=== PATIENT | male | born 1960 | race Caucasian/White ===

== ENCOUNTER 2019-01-12 22:15 | Emergency (ER) | payer OTHER, SELFPAY ==
[~2019-01-12] VITALS: Ht 172.7 cm; Wt 72.7 kg
[2019-01-12 23:07] LABS: HEMATOCRIT 44.5 % (42.0-52.0); HEMOGLOBIN 15.7 g/dl (13.5-17.5); MEAN CORPUSCULAR HEMOGLOBIN 33.5 pg (27.0-33.0); MEAN CORPUSCULAR HGB CONC 35.3 g/dl (32.0-36.5); MEAN CORPUSCULAR VOLUME 94.9 fl (80.0-96.0); PLATELET COUNT, AUTOMATED 245 10^3/uL (150-450); RED BLOOD COUNT 4.69 10^6/uL (4.30-6.10)
[2019-01-12 23:30] LABS: AMPHETAMINES LEVEL URINE NEGATIVE (NEGATIVE); BARBITURATES URINE NEGATIVE (NEGATIVE); BENZODIAZEPINES URINE NEGATIVE (NEGATIVE); CANNABINOIDS URINE NEGATIVE (NEGATIVE); COCAINE METABOLITE URINE NEGATIVE (NEGATIVE); METHADONE URINE NEGATIVE (NEGATIVE); OPIATES URINE NEGATIVE (NEGATIVE); PHENCYCLIDINE URINE NEGATIVE (NEGATIVE)
[2019-01-12 23:45] LABS: ACETAMINOPHEN LEVEL < 2.0 UG/ML (10.0-30.0); ALBUMIN 4.1 GM/DL (3.2-5.2); ALT/SGPT 85 U/L (12-78); BILIRUBIN,DIRECT 0.1 MG/DL (0.0-0.2); BILIRUBIN,TOTAL 0.4 MG/DL (0.2-1.0); BLOOD UREA NITROGEN 3 MG/DL (7-18); CALCIUM LEVEL 8.8 MG/DL (8.5-10.1); CARBON DIOXIDE LEVEL 21 MEQ/L (21-32); CHLORIDE LEVEL 101 MEQ/L (98-107); CREATININE FOR GFR 0.65 MG/DL (0.70-1.30); GLOMERULAR FILTRATION RATE > 60.0 (>56); GLUCOSE, FASTING 78 MG/DL (70-100); POTASSIUM SERUM 3.9 MEQ/L (3.5-5.1); SALICYLATE LEVEL 8.1 MG/DL (5.0-30.0); SODIUM LEVEL 136 MEQ/L (136-145); TOTAL PROTEIN 7.7 GM/DL (6.4-8.2)
[2019-01-12] MEDS ORDERED: LORazepam 2 MG TAB PO PRN (23:45)
[2019-01-13 00:48] LABS: FREE T4 0.87 NG/DL (0.76-1.46)
[2019-01-13] MEDS: THIAMINE 100 MG TAB PO SCH ×2 (01:47→08:56)
[2019-01-13] MEDS ORDERED: MULTIVITAMINS/MINERALS THERAP 1 TAB PO SCH (09:00)
[2019-01-13] MEDS ORDERED: FOLIC ACID 1 MG TAB PO SCH (09:00)
[2019-01-13 11:19] VITALS: BP 132/76
== END 2019-01-13 11:41 | disposition home or self-care (01) ==
LOC: M ED 22:15
DX: F10.120 Alcohol abuse with intoxication, uncomplicated (principal); F17.210 Nicotine dependence, cigarettes, uncomplicated
CPT/HCPCS: 36415; 80048; 80076; 80307; 84439; 84443; 85027; 99284; G0480

== ENCOUNTER → 2020-05-12 | Outpatient (CLI) | payer BC, OTHER, SELFPAY | LOC: M ONCR 11:35 | PROVIDERS: ATTEND General Practice | DX: Z53.9 Procedure and treatment not carried out, unspecified reason (principal) ==

== ENCOUNTER → 2020-10-11 | Outpatient (CLI) | payer BC ==
--- NOTE | 2020-10-11 11:35 | REP ---
INDICATION: MALIGNANT NEOPLASM OF RETROMOLAR AREA COMPARISON: None. TECHNIQUE: Axial noncontrast images from the thoracic inlet to the upper abdomen using low-dose lung screening technique (LDCT). FINDINGS: The bilateral lung brink demonstrate early moderate emphysematous changes. There is a 7 mm perifissural density adjacent to the right minor fissure as well as a somewhat ill-defined area of airspace disease along the anterior subpleural right middle lobe measuring roughly 2.5 cm maximal diameter. No further nodule or mass. No effusion. No pneumothorax. Tracheobronchial tree is patent. IMPRESSION: 1. Given the patient's history of neoplasm and the above findings which cannot be classified based on Fleischner society criteria, as well as the lack of prior examinations for comparison, a six-month follow-up examination to determine stability may be warranted. <Electronically signed by Jimbo Hernandez > 10/11/20 0788
== END ==
LOC: M RAD 11:00
PROVIDERS: ATTEND General Practice
DX: C06.2 Malignant neoplasm of retromolar area (principal)

== ENCOUNTER → 2020-12-07 | Outpatient (CLI) | payer BC ==
--- NOTE | 2020-12-08 08:22 | RADONC ---
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 He was seen on 05/13/20 at the request of his PCP to re-establish care with an oncologist. He is seen today for surveillance and survivorship care. Diagnosis/Treatment History Oncologic History September 2018: Resection of T1 SCC of the left cheek Spring/Summer 2018: Developed irritation in the left mouth, underwent ENT evaluation at [facility] and had pTisNXMX SCC in situ removed from the left RMT on 06/17/19. Margins positive to Tis. He was lost to oncologic follow up thereafter and was referred by his PCP Dr. Locke to re-establish oncologist follow up. 04/08/20 MRI head neck negative 05/13/20 Rhinolaryngoscopy negative. Oral cavity exam in left retromolar trigone there is a 0.4-0.5 cm hyperemic patch without ulceration that is tender to touch. Was referred for lung cancer screening CT. Recent data: 10/11/20 CT chest screening 0.7 cm nodule in the minor fissure 2.5 cm ground glass sub-pleural RML Interval History Korey continues to smoke 1/2 ppd. Not interested in quitting at this time. Knows the lesion in his mouth is from smoking. Says the irritation there increases when he smokes. He is drinking sporadically, due to stress at work 4-5 beers "couple days per week". Overall he feels well though. Working long hours. Energy level and appetite stable. Weight stable. No CP, SOB, hoarseness, oropharyngeal bleeding, and dysphagia. Was placed on BP med by PCP but he quit this due to lightheadedness. Excited to get some [employer] after this visit. Current Therapy Surveillance Stage Oral cavity left RMT pTisNXMX Left cheek skin [id number] Social History: Current 1/2 ppd smoker with 50+ pack year history Currently drinks 4-5 beers several days per week (prior alcohol abuse) Allergies / Meds Allergies: Coded Allergies: No Known Allergies (Unverified , 01/12/19) Review of Systems Review of Systems Constitutional: Denies: Chills, Fever, Weakness, Fatigue, Weight Loss Eyes: Denies: Pain, Vision change HEENT: Reports: Sore Throat; Denies: Head Aches, Ear Pain, Dysphagia Skin: Denies: Rash Pulmonary: Denies: Dyspnea, Cough Cardiovascular: Denies: Chest Pain, Palpitations Gastrointestinal: Denies: Nausea, Vomiting, Abdominal Pain Genitourinary: Denies: Dysuria, Frequency Hematologic: Denies: Bruising Endocrine: Denies: Cold Intolerance Musculoskeletal: Denies: Neck pain, Back pain Neurological: Denies: Weakness, Numbness Psych: Reports: Mood Normal, Anxiety Physical Examination Vital Signs Ht 68" Wt 155 lbs BMI 23 T 98 P 57 RR 18 BP 145/97 O2 99% Pain 0 Fatigue 0 General Exam: Positive: Alert, Cooperative; Negative: No Acute Distress Eye Exam: Positive: PERRLA, EOMI ENT EXAM: Positive: Atraumatic, Mucous membr. 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 There is no ulceration or bleeding. 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 This is new. There is no mass. There are no visible or palpable lesions of the buccal mucosa or gingiva. The tonsils are surgically absent. The tongue base is without masses BL. Dentition in good condition. No cervical or supraclavicular adenopathy. Endoscopic exam deferred.) Neck Exam: Positive: Supple; Negative: Thyromegaly Chest Exam: Positive: Clear to auscultation, Normal air movement Heart Exam: Positive: Rate Normal, Regular Rhythm Abdomen Exam: Positive: Soft; Negative: Tenderness Extremity Exam: Negative: Edema Skin Exam: Positive: Nl turgor and temperature; Negative: Lesion (Scattered solar lentigo on facial skin. No lesions concerning for cancer or pre-malignancy ) Neuro Exam: Positive: Normal Gait, Normal Speech, Cranial Nerves 3-12 NL Psych Exam: Positive: Mental status NL, Mood NL Diagnostic and Laboratory Diagnostic Review Radiologic images, relevant labs and pathology reports were personally reviewed and discussed with Mr. Tran. Assessment and Plan Impression Assessment Mr. 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 He was seen on 05/13/20 at the request of his PCP to re-establish care with an oncologist. He is seen today for surveillance and survivorship care. We discussed his smoking, he says he recognizes the importance of quitting, understanding that the smoking is promoting the pre-malignancy in the left RMT. However, he is unwilling to try and quit now, prefers we revisit this at the next appointment. With respect to the left RMT lesion, the erythroplakia is stable. There is some leukoplakia surrounding without ulceration or mass. We can continue to watch this with low threshold for biopsy. On his screening CT chest there is a solid nodule 7mm in the right minor fissure. I will order a [address] scan to assess stability of this lesion. We can follow up in 6 months. Performance Status ECOG 0 Plan [address] chest Will revisit smoking cessation at that time and assist as able Mr. Tran was encouraged to call with questions or concerns in the interim period. Billing Statement Total time of [22] minutes was spent preparing for the visit [2], obtaining HPI [4], examining the patient [5], reviewing diagnostic tests [2], discussing management options [2], coordinating care [1], and writing this note [6]. MAC CORREA MD Dec 08, 2020 08:21
== END ==
LOC: M ONCR 15:06
PROVIDERS: ATTEND General Practice
DX: C06.2 Malignant neoplasm of retromolar area (principal); F17.200 Nicotine dependence, unspecified, uncomplicated

== ENCOUNTER → 2021-04-04 | Outpatient (CLI) | payer BC ==
--- NOTE | 2021-04-05 07:43 | REP ---
INDICATION: MOUTH CA H/O PULMONARY NODULE COMPARISON: 10/11/2020 TECHNIQUE: Axial noncontrast images from the thoracic inlet to the upper abdomen with coronal and sagittal reformations. This CT examination was performed using the following dose reduction techniques: Automated exposure control, adjustment of mA and/or kv according to the patient's size, and use of iterative reconstruction technique. FINDINGS: Moderate to advanced COPD/emphysematous changes with mild scattered scarring again noted and relatively stable. Evaluation is significantly limited due to respiratory motion artifact. Previously identified focal area of airspace disease along the anterior margin of the right middle lobe has resolved while the 7 mm perifissural density remains essentially stable likely representing small scar. No acute consolidation, significant nodule, or mass lesion identified. No pleural effusion no pneumothorax. Tracheobronchial tree is patent. No obvious axillary, hilar, or mediastinal adenopathy. The mediastinum demonstrates relatively normal/stable thoracic aorta, pulmonary vasculature, and heart/pericardium. Limited upper abdomen demonstrates normal bilateral adrenal glands and hepatosteatosis. IMPRESSION: 1. Previous focal area of airspace disease in the anterior right middle lobe has resolved. 2. Small 7 mm perifissural density remains unchanged and likely represents scarring. 3. No acute mediastinal or pleuroparenchymal process otherwise appreciated. 4. Hepatosteatosis. <Electronically signed by Jimbo Hernandez > 04/05/21 [id number]
== END ==
LOC: M RAD 13:22
PROVIDERS: ATTEND General Practice
DX: C06.2 Malignant neoplasm of retromolar area (principal); J43.9 Emphysema, unspecified; K76.0 Fatty (change of) liver, not elsewhere classified; R91.8 Other nonspecific abnormal finding of lung field